=== PATIENT | male | born 1980 | race American Indian/Alaskan Native ===

== ENCOUNTER 2022-03-11 16:55 | Emergency (ER) | payer OTHER ==
[2022-03-11] MEDS ORDERED: TETANUS,DIPH,PERTUSS(ACELL) VACCINE 0.5 ML SYRINGE IM ONE (17:18)
[2022-03-11] MEDS ORDERED: LIDOCAINE (1%) 10 MG/1 ML VIAL 20 ML MDV INFILTRATI ONE (17:18)
[2022-03-11] MEDS ORDERED: SODIUM CHLORIDE 0.9% IRR 500 ML BOTTLE IR ONE (17:18)
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
[2022-03-11] MEDS ORDERED: ceFAZolin/NS 2 GM/100 ML 2 GM/100 ML BAG IV SCH (20:00)
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
[2022-03-11] MEDS ORDERED: ONDANSETRON 4 MG/2 ML INJ IV ONE (20:05)
[2022-03-11] MEDS ORDERED: MORPHINE 4 MG/1 ML INJ IV ONE (20:05)
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
[2022-03-11 21:01] VITALS: BP 141/72
== END 2022-03-11 21:10 | disposition short-term general hospital (02) ==
LOC: ED 16:55
DX: S02.2XXA Fracture of nasal bones, initial encounter for closed fracture (principal); S01.81XA Laceration without foreign body of other part of head, initial encounter; S01.111A Laceration without foreign body of right eyelid and periocular area, initial encounter; S09.90XA Unspecified injury of head, initial encounter; F31.9 Bipolar disorder, unspecified; Y08.89XA Assault by other specified means, initial encounter; Y93.89 Activity, other specified; Y92.89 Other specified places as the place of occurrence of the external cause; Y99.8 Other external cause status
CPT/HCPCS: 70450; 70486; 72125; 90471; 90715; 96365; 96375; 99285; J2270; J2405